=== PATIENT | female | born 1985 | race Caucasian/White ===

== ENCOUNTER 2025-07-02 10:24 | Emergency (ER) | payer BC, SELFPAY ==
--- OUTSIDE RECORDS SUMMARY | 2025-07-02 10:27 | XMS_ITS | Clinical Summary ---
Author Organization [facility] Address [address] [place] [id number] Care Team Providers Care Transit Planning Director Name Role Phone Ольга Beavers DO Primary Care Provider [phone] Allergies Active Allergy Reactions Criticality Noted Date Comments Hydrocodone-Acetaminophen Itching 03/30/2007 Medications hydrOXYzine HCL (ATARAX) 50 mg tablet Take 1 tablet by mouth 3 times daily if needed. 01/02/2020 Active escitalopram oxalate (LEXAPRO) 20 mg tabletIndication s:KATHY (generalized anxiety disorder),Chroni c post-traumatic stress disorder (PTSD),Mild episode of recurrent major depressive disorder Take 1 Tablet (20 mg) by mouth once daily in the morning. 90 Tablet 3 08/02/2024 Active busPIRone (BUSPAR) 10 mg tabletIndication s:KATHY (generalized anxiety disorder),Chroni c post-traumatic stress disorder (PTSD) Take 1 Tablet (10 mg) by mouth two times daily. 180 Tablet 05/22/2025 Active Active Problems Problem Noted Date Diagnosed Date KATHY (generalized anxiety disorder) 08/02/2024 Chronic post-traumatic stress disorder (PTSD) Mild episode of recurrent major depressive disor daisy 08/02/2024 Immunization reaction 08/02/2024 JOSÉ III (cervical intraepithelial neoplasia III) 06/03/2009 Overview (08/08/2024): 05/10/2009 HSIL 06/03/2009 [place]: JOSÉ 2-3 01/21/2010 HSIL 02/04/2010 [place]: JOSÉ 2-3 02/27/2010 LEEP JOSÉ 2-3, ectocervical margin positive 05/09/2014 NIL/HPV negative 02/19/2020 NIL/HPV negative 08/02/2024 NIL/HPV negative Plan: HPV-based testing due 07/2027 ASCCP suggests that follow-up should continue at 3 year intervals for a minimum of 25 years AND through at least age 65 years AND may continue for as long as the patient is in good health. CYST, SEBACEOUS 11/29/2000 Resolved Problems Problem Noted Date Diagnosed Date Resolved Date Nephrolithiasis 08/02/2024 08/02/2024 Acute appendicitis 04/09/2011 Adnexal Mass in 06/19/2009 Overview (01/06/2021): Diagnosed in Lap oophorectomy LEFT OVARY AND FALLOPIAN TUBE, SALPINGO-OOPHORECTOMY: 1. 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 Fallopian tube: No diagnostic alterations 3. No evidence of malignancy Supervision of normal first 05/20/2009 11/14/2012 Encounters Date Type Department Care Team Description 07/02/2025 Nurse Triage [facility] [address] [place] [address] Ольга Beavers, Back Pain 05/21/2025 Refill [facility] [address] [place] [address] Ольга Beavers, Refill Request (Buspirone HCL 10mg tabs) from Last 3 Months Immunizations Immunization Administration Dates Next Due Influenza A (H1N1), Inactivated (Age >=3 Years) 08/22/2009 Influenza, IIV3 (Age >=3 years) 09/19/2009,07/23 MMR 01/17/1998,02/20/1987 Td (Age >=7 Years) 04/26/2000,01/17/1998 Tdap 05/09/2014 Family History Medical History Relation Name Comments Arrhythmia Father Cancer Maternal Aunt 1 cervical can cer Cancer-breast Maternal Aunt 1 Lung cancer Maternal Aunt 1 Cancer-breast Maternal Aunt 2 COPD Maternal Grandfather Alzheimer's disease Maternal Grandmother Cancer Mother cervical, breas t (45) and ovarian (53) Heart attack Paternal Grandfather Good Health Sister Relation Name Status Comments Father Alive Maternal Aunt 1 Maternal Aunt 2 Alive Maternal Grandfather Maternal Grandmother Mother Alive Paternal Grandfather Paternal Grandmother Alive Sister Alive Social History Tobacco Use Types Packs/Day Years Used Date Smoking Tobacco: Every Day Cigarettes Smokeless Tobacco: Never Tobacco Cessation:Counseling Given: Yes Comments:has cut back to 2 to 5 per day Alcohol Use Standard Drinks/Week Comments Yes 6.7 (1 standard drink = 0.6 oz p ure alcohol) 2-4 per month PHQ-2 Answer Date Recorded PHQ-2 TOTAL SCORE 2 08/02/2024 Social Connections Answer Date Recorded Do you often feel lonely or isolated from those around you? 0 07/06/2024 Financial Resource Strain Answer Date R ecorded Difficulty of Paying Living Expenses 3 07/06/2024 Difficulty of Paying Living Expenses Not on file 07/06/2024 Food Insecurity Answer Date Recorded Do you worry your food will run out before you are able to buy more? 1 07/06/2024 Transportation Needs Answer Date Record ed Does lack of transportation keep you from medica l appointments? 1 07/06/2024 Does lack of transportation keep you from work, meetings or getting things that you need? 1 07/06/2024 Housing Stability Answer Date Recorded What is your housing situation today? 1 07/06/2024 Utilities Answer Date Recorded Do you have trouble paying f or utilities (for example, heat, electricity, water, phone)? 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 Not on file Not on file Not on file Obstetrics History Para Term AB IAB SAB Ectopic Multiple Livin g Live Births 1 1 1 1 1 Date Outcome GA Total Labor Labor/2nd/3rd Weight Sex Type Anes PTL Alpa A1 A5 Name Clin 2009 Term 38w 1d 36h 00m/ 3.06 kg (6 lb 12 oz) M Vag Epidur al Livin g [place] Delivery Location:[place] Last Filed Vital Signs Vital Sign Reading Time Taken Comments Blood Pressure 107/73 08/02/2024 7:45 AM CDT Pulse 89 08/02/2024 7:45 AM CDT Temperature 37.7 C (99.9 F) 12/27/2015 9:31 AM CDT Respiratory Rate 14 06/28/2009 7:00 AM CDT Oxygen Saturation 99% 07/17/2024 7:37 AM CDT Inhaled Oxygen Concentration - - Weight 113.3 kg (249 lb 12.8 oz) 08/02/2024 7:45 AM CDT Height 182 cm (5' 11.65) 08/02/2024 7 :45 AM CDT Body Mass Index 34.21 08/02/2024 7:45 AM CDT Plan of Treatment Health Maintenance Due Date Last Done Comments Hepatitis C screening for ag e 18-79 2003 Hepatitis B series for 19+ ( 1 of 3 - 19+ 3-dose series) 2004 Pneumococcal series for age 6-49 (1 of 2 - PCV) 2004 HPV series for age 9-45 (1 - 3-dose SCDM series) 2012 Tetanus booster 05/09/2024 05/09/2014, 04/04, 01/17/1998 COVID-19 vaccine series ( season) 2025 02/21/2021, 01/31/2021 Influenza Vaccine (#1) 2025 09/19/2009, 1994 BMI (ht and wt on same day) for age 18+ 08/02/2025 08/02/2024, 02/19/2020, 12/27/2015 Depression screening for age 12+ 08/02/2025 08/02/20 24, 02/19/2020 Pap test for age 21-65 08/02/2027 4, 02/19/2020, 02/19/2020, Additional history exists RSV vaccine for adults or (1 - 1-dose 75+ series) 2060 HIV for age 15-65 Completed 04/19/2009 Procedures Procedure Name Priority Date/Time Associated Diagnosis Comments FIELD SALES ENGINEER THIN PREP PAP AND HPV DNA - AGE 25 AND OVER ([facility]) Routine 08/02/2024 9:06 AM CDT Pap smear for cervical cancer screening ANTI HIV 1/2 Routine 04/19/2009 11:35 AM CDT Supervision of Other Normal (HC) from Last 3 Months or Most Recently Relevant to Health Maintenance Results * FIELD SALES ENGINEER THIN PREP PAP AND HPV DNA - AGE 25 AND OVER ([facility]) (08/02/2024 9:06 AM CDT) CLINICAL INFORMATION [facility] Comment:None given LMP [facility] Comment:07/16/24 PREV. PAP [facility] Comment:NIL HPV NEG IN 2019 PREV. BX [facility] Comment:N/A SOURCE FIELD SALES ENGINEER [facility] Comment:Cervix STATEMENT OF ADEQUACY [facility] Comment: Satisfactory for evaluation. Endocervical/transformation zone component absent. INTERPRETATION/RESU LT [facility] Comment: Cytology Results: Negative for intraepithelial lesion or malignancy. COMMENT [facility] Comment: This Pap test has been evaluated with computer assisted technology. WHITE SIDEWALL TIRE BUFFER [facility] Comment: JXL, CT(ASCP) CT Screening Location: [address] [address] THINPREP TIS PAP ALWAYS MESSAGE [facility] Comment: EXPLANATORY NOTE: The Pap is a screening test for cervical cancer. It is not a diagnostic test and is subject to false negative and false positive results. It is most reliable when a satisfactory sample, regularly obtained, is submitted with relevant clinical findings and history, and when the Pap result is evaluated along with historic and current clinical information. HPV HIGH RISK Not Detected NOT DETECTED [facility] Comment: Not Detected High Risk HPV types (16,18,31,33,35,39,45,51,52, 56,58,59,66,68) were not detected. Other HPV types which cause anogenital lesions may be present. The significance of the other types of HPV in malignant processes has not been established. Methodology: Real Time PCR Other (Other) 08/02/2024 9:0 6 AM CDT 08/03/2024 4:03 AM CDT Ольга Beavers DO PATHOLOGY/CYTOLOGY Final R esult [facility] [address] [place] [address], [facility] [address] [place] [address] * HIV (04/19/2009 11:35 AM CDT) ANTI HIV 1/2 Non-reacti ve [facility] Blood specimen (specimen) BLOOD SPECIMEN / Unknown 04/19/2009 11:35 AM CDT 04/19/2009 11:29 AM CDT Carmen Guillen FAMILY INDEPENDENCE CASE MANAGER SEND OUTS Final Result [facility] INTERNAL ZIP [address] [address] from Last 3 Months or Most Recently Relevant to Health Maintenance Insurance [facility] Advance Directives * Full Code (Latest Code Status on File) Date Activated Date Inactivated Comments 06/24/2009 5:10 PM 06/28/2009 1:30 PM Care Teams Transit Planning Director Relationship Specialty Start Date End Date Ольга Beavers [place] [address] [place] [address] [place] [address] PCP - General Family Practice 07/06/24
[2025-07-02 10:35] VITALS: BP 126/77; PULSE 95; RESP 16; TEMP 36.7; O2SAT 97; BMI 33.5
--- NOTE | 2025-07-02 10:53 | ED.GENADULT ---
HPI - General Adult General Chief complaint: Back Injury/Pain Stated complaint: Lower back pain, numbness Time Seen by Provider: 07/02/25 10:27 Source: patient Mode of arrival: ambulatory Limitations: no limitations History of Present Illness HPI narrative: 40-year-old female presenting today with back pain radiates down legs. Patient states that she had back pain about 3 months ago and that did slowly get better. At that time she did have pain radiating down the right leg and numbness going down the right leg. She states that she that numbness has not fully recovered since 3 months ago. However about 1 month ago she had a bad cough and felt a pop in her back and has been having shooting pain down both legs since. In the last 3 days she feels like the pain has gotten worse. She denies loss of bowel or bladder function. No fevers or chills. No nausea or vomiting. She denies the lower extremities not functioning properly, has not tripped or fallen. Sometime she states her legs do feel weak. She denies any saddle anesthesia. Pain radiates to the mid chacon on the right and to just above the knee on the left. Describes as a sharp shooting pain that is not always present but comes and goes. Pain across the low back is always present. Related Data Home Medications ?Medication ?Instructions ?Recorded ?Confirmed buspirone 10 mg tablet 10 mg PO BID 07/02/25 07/02/25 escitalopram oxalate 20 mg tablet 20 mg PO DAILY 07/02/25 07/02/25 Previous Rx's ?Medication ?Instructions ?Recorded ketorolac 10 mg tablet 10 mg PO TID 5 days #15 tabs 07/02/25 ketorolac 10 mg tablet 10 mg PO TID 5 days #15 tabs 07/02/25 methylprednisolone 4 mg tablets in See Rx Instructions PO .COMPLEX 07/02/25 a dose pack (Medrol ([facility])) #21 ea methylprednisolone 4 mg tablets in See Rx Instructions PO .COMPLEX 07/02/25 a dose pack (Medrol ([facility])) #21 ea Allergies Allergy/AdvReac Type Severity Reaction Status Date / Time acetaminophen (From Vicodin) AdvReac itching Verified 07/02/25 11:07 hydrocodone (From Vicodin) AdvReac itching Verified 07/02/25 11:07 Review of Systems Status of ROS: Reports: 10 or more systems reviewed and unremarkable except as noted in History and below [facility] Social History Smoking Status: Current every day smoker What tobacco products do you use: cigarettes Smoking packs per day: 0.5 Smoking cigarettes per day: 10.0 Do you use any of these nicotine containing products: None Second hand tobacco smoke exposure: No How often do you have a drink containing alcohol: 2-3 times a week AUDIT-C Alcohol total score: 3 Non-prescribed substance use: marijuana (any form) service: No Exam Narrative: Exam Narrative: Overweight, well-developed patient in no acute distress. Alert and oriented. Answers questions appropriately. Mood and affect are appropriate. Thoughts are goal oriented and rational. No tangential or magical thinking noted. Patient speaks in full sentences without needing to catch her breath. HEENT: Normocephalic atraumatic. Pupils are equally round reactive to light. Extraocular muscles are intact. Conjunctivae are moist without any icterus noted. Moist mucous membranes. Straight leg test is positive on the right. Back: Normal appearance. Tenderness around the paraspinal musculature of the lumbar spine. Strength is 5/5 of the upper and lower extremities, both proximal and distal muscle groups. Reflexes are 2+ and symmetric at the knees. Const: Vital Signs, click to edit/add: Vital Signs - 24 hr 07/02/25 10:35 Temperature 98.1 F Pulse Rate [Pulse Oximeter] 95 Respiratory Rate 16 Blood Pressure [Ri ght Upper Arm] 126/77 Pulse Oximetry 97 Oxygen Delivery Me thod Room Air Course Vital Signs Vital signs: Initial Vital Signs Temperature 98.1 F 07/02/25 10:35 Temperature Source Temporal Artery Scan 07/02/25 10:35 Pulse Rate 95 07/02/25 10:35 Pulse Rhythm Regular 07/02/25 10:35 Pulse Strength 3+ Normal 07/02/25 10:35 Respiratory Rate 16 07/02/25 10:35 Blood Pressure 126/77 07/02/25 10:35 Blood Pressure Mean 93 07/02/25 10:35 Blood Pressure Position Sitting 07/02/25 10:35 Pulse Oximetry 97 07/02/25 10:35 Oxygen Delivery Method Room Air 07/02/25 10:35 Vital Signs Temperature 98.1 F 07/02/25 10:35 Pulse Rate 95 07/02/25 10:35 Respiratory Rate 16 07/02/25 10:35 Blood Pressure 126/77 07/02/25 10:35 Pulse Oximetry 97 07/02/25 10:35 Oxygen Delivery Method Room Air 07/02/25 10:35 Temperature 98.1 F 07/02/25 10:35 Pulse Rate 95 07/02/25 10:35 Respiratory Rate 16 07/02/25 10:35 Blood Pressure 126/77 07/02/25 10:35 Pulse Oximetry 97 07/02/25 10:35 Oxygen Delivery Method Room Air 07/02/25 10:35 Medical Decision Making MDM Narrative Medical decision making narrative: 40-year-old female with lumbar back pain with radiculopathy. Potential herniated disc. Will treat with Medrol Dosepak and Toradol p.o.- follow-up in the spine clinic. Discharge Plan Discharge Clinical Impression: Lumbar radiculopathy Patient Disposition: Home, Self-Care Condition: Stable Additional Instructions: Follow up appointment is scheduled at the [facility] on 07/23 with an 8:30am appointment time. Please arrive at 8:15am to complete paperwork. If you have any questions or need to reschedule, please call [phone]. [facility] [address] [place] [address] Prescriptions: New ketorolac 10 mg tablet 10 mg PO TID 5 Days Qty: 15 0RF methylprednisolone [Medrol ([facility])] 4 mg tablets,dose pack See Rx Instructions .ROUTE .COMPLEX Qty: 21 0RF Rx Instructions: orally per package directions ketorolac 10 mg tablet 10 mg PO TID 5 Days Qty: 15 0RF methylprednisolone [Medrol ([facility])] 4 mg tablets,dose pack See Rx Instructions .ROUTE .COMPLEX Qty: 21 0RF Rx Instructions: orally per package directions No Action buspirone 10 mg tablet 10 mg PO BID escitalopram oxalate 20 mg tablet 20 mg PO DAILY Follow Up/Referrals: Fariba Molina MD [Primary Care Provider, Family Practice] Stand Alone Forms: [facility] Info Instructions
== END 2025-07-02 11:17 | disposition home or self-care (01) ==
LOC: ED 11:03
PROVIDERS: Emergency Provider Family Medicine; PCP Family Medicine
DX: M54.16 Radiculopathy, lumbar region (principal)
CPT/HCPCS: 99283; 99284

== ENCOUNTER 2025-08-21 13:38 | Emergency (ER) | payer BC, SELFPAY ==
--- NOTE | 2025-08-21 | CRLHL7_ITS ---
For Patients: As a result of the Century Cures Act, medical imaging exams and procedure reports are released immediately into your electronic medical record. You may view this report before your referring provider. If you have questions, please contact your health care provider. FINDINGS: Please see report from concurrent MRI of the brain. Dictated by Vamshi Ray MD @ 08/21/2025 5:38:46 PM (Electronically Signed)
[2025-08-21 14:13] VITALS: BP 140/89; PULSE 68; RESP 18; TEMP 36.7; O2SAT 98; BMI 33.0
--- NOTE | 2025-08-21 15:21 | CRLHL7_ITS ---
For Patients: As a result of the Century Cures Act, medical imaging exams and procedure reports are released immediately into your electronic medical record. You may view this report before your referring provider. If you have questions, please contact your health care provider. INDICATION: Vision issues left eye. COMPARISON: None available. TECHNIQUE: Multiplanar T1, T2, FLAIR and diffusion-weighted imaging. Post gadolinium T1 sequences. Additional pre and post gadolinium sequences of the orbits with fat saturation. Gadolinium 15 cc IV FINDINGS: Normal brain parenchymal morphology and signal intensity. No intracranial hemorrhage. No abnormal ventricular dilatation. Intracranial vascular flow voids are preserved. No mass effect. No midline shift. No restricted diffusion to suggest acute ischemia. No abnormal enhancement or enhancing lesions. Dedicated sequences of the orbits demonstrates normal symmetric globes. No proptosis. No abnormal signal intensity or enhancement of the optic nerve sheath complexes. Normal symmetric extra-ocular muscles. No intraconal extraconal mass or lesion. Normal appearing sella. Normal cavernous sinuses bilaterally. Visualized paranasal sinuses unremarkable. Small left mastoid effusion. IMPRESSION: 1. No acute intracranial abnormality 2. Normal brain parenchymal morphology and signal intensity. 3. No abnormal enhancement or enhancing lesions within the brain parenchyma 4. Dedicated sequences of the orbits demonstrates normal symmetric globes, extra-ocular muscles and optic nerve sheath complexes. No intraconal or extraconal mass or lesion. Dictated by Vamshi Ray MD @ 08/21/2025 5:38:22 PM (Electronically Signed)
--- NOTE | 2025-08-21 17:08 | ED.NEUROSD ---
HPI - Neuro Symptoms/Deficit General Date Seen: 08/21/25 Chief Complaint: Neuro Symptoms/Altered Deficit Stated Complaint: Vision issues Time Seen by Provider: 08/21/25 14:43 Source: patient Mode of arrival: ambulatory Limitations: no limitations History of Present Illness HPI Narrative: Patient is a 40-year-old female presenting to the emergency department for vision issues. She states 2 weeks ago she noticed the redness in the middle 3rd of her left visual field. No visual issues with her right eye. She has never had symptoms like this before. She states the top 3rd aches and bottom 3rd of her left eye vision appears normal. She saw her coil connector and PCP for both said her eye looks normal. She does have some history of slight glaucoma but she states her coil connector states it is at baseline it is not causing the symptoms. She states she set up an appointment with [place] [facility] any done and was going to be having appointment in 2 weeks but she states they then called her back and told her to get to the emergency department to do an MRI and see them on Wednesday. Related Data Home Medications ?Medication ?Instructions ?Recorded ?Confirmed buspirone 10 mg tablet 10 mg PO BID 07/02/25 07/23/25 escitalopram oxalate 20 mg tablet 20 mg PO DAILY 07/02/25 07/23/25 hydroxyzine HCl 10 mg tablet 10 mg PO 3XD 07/23/25 07/23/25 Previous Rx's ?Medication ?Instructions ?Recorded ketorolac 10 mg tablet 10 mg PO TID 5 days #15 tabs 07/02/25 ketorolac 10 mg tablet 10 mg PO TID 5 days #15 tabs 07/02/25 methylprednisolone 4 mg tablets in See Rx Instructions PO .COMPLEX 07/02/25 a dose pack (Medrol (Harvey)) #21 ea methylprednisolone 4 mg tablets in See Rx Instructions PO .COMPLEX 07/02/25 a dose pack (Medrol (Harvey)) #21 ea Allergies Allergy/AdvReac Type Severity Reaction Status Date / Time acetaminophen (From Vicodin) AdvReac itching Verified 07/23/25 08:37 hydrocodone (From Vicodin) AdvReac itching Verified 07/23/25 08:37 Review of Systems Status of ROS: Reports: 10 or more systems reviewed and unremarkable except as noted in History and below [facility] Medical History KATHY (generalized anxiety disorder) ?F41.1 - Generalized anxiety disorder (ICD-10) Scoliosis ?M41.9 - Scoliosis, unspecified (ICD-10) PTSD (post-traumatic stress disorder) ?F43.10 - Post-traumatic stress disorder, unspecified (ICD-10) Ovarian mass, left ?N83.8 - Other noninflammatory disorders of ovary, fallopian tube and broad ligament (ICD-10) Depression ?F32.A - Depression, unspecified (ICD-10) Nephrolithiasis ?N20.0 - Calculus of kidney (ICD-10) Surgical History History of colposcopy (06/03/09) ?Z98.890 - Other specified postprocedural states (ICD-10) H/O unilateral oophorectomy (06/24/09) ?Z90.721 - Acquired absence of ovaries, unilateral (ICD-10) H/O LEEP (02/27/10) ?Z98.890 - Other specified postprocedural states (ICD-10) History of appendectomy (04/08/11) ?Z90.49 - Acquired absence of other specified parts of digestive tract (ICD-10) Social History Smoking Status: Current every day smoker What tobacco products do you use: cigarettes Smoking packs per day: 0.5 Smoking cigarettes per day: 10.0 Do you use any of these nicotine containing products: None Second hand tobacco smoke exposure: No How often do you have a drink containing alcohol: 2-3 times a week AUDIT-C Alcohol total score: 3 Non-prescribed substance use: marijuana (any form) service: No Exam Narrative: Exam Narrative: Const: Well-nourished, Well-developed, in no distress Eyes: PERRL, no conjunctival injection, and symmetrical lids. Bedside visual exam she was able to see my fingers when standing for away but she states she was using lot of contacts bruise to cast the number. When I wrote a number large CN a piece of paper and stayed the same distance away she was unable to see the number. HENT: Atraumatic external nose and ears. Moist mucous membranes. Neck: Symmetric, trachea midline, No thyromegaly. CVS: RRR, No murmurs or gallops. Peripheral pulses 2+ and equal in all extremities RESP: Unlabored respiratory effort. Clear to auscultation bilaterally. GI: Nontender/Nondistended, No rebound or guarding. MSK:Extremities w/o deformity, Normal Active ROM Skin: Warm, Dry. No rashes or lesions. Neuro: Normal Muscle tone, No focal neurological deficits. Psych: Awake, Alert, & Oriented x3. Appropriate mood and affect. Const: Vital Signs, click to edit/add: Vital Signs - 24 hr 08/21/25 14:13 Temperature 98.0 F Pulse Rate [Right Pulse Oximeter] 68 Respiratory Rate 18 Blood Pressure [Ri ght Upper Arm] 140/89 H Pulse Oximetry 98 Oxygen Delivery Me thod Room Air Course Vital Signs Vital signs: Initial Vital Signs Temperature 98.0 F 08/21/25 14:13 Temperature Source Temporal Artery Scan 08/21/25 14:13 Pulse Rate 68 08/21/25 14:13 Respiratory Rate 18 08/21/25 14:13 Blood Pressure 140/89 H 08/21/25 14:13 Blood Pressure Mean 106 H 08/21/25 14:13 Blood Pressure Position Sitting 08/21/25 14:13 Pulse Oximetry 98 08/21/25 14:13 Oxygen Delivery Method Room Air 08/21/25 14:13 Vital Signs Temperature 98.0 F 08/21/25 14:13 Pulse Rate 68 08/21/25 14:13 Respiratory Rate 18 08/21/25 14:13 Blood Pressure 140/89 H 08/21/25 14:13 Pulse Oximetry 98 08/21/25 14:13 Oxygen Delivery Method Room Air 08/21/25 14:13 Temperature 98.0 F 08/21/25 14:13 Pulse Rate 68 08/21/25 14:13 Respiratory Rate 18 08/21/25 14:13 Blood Pressure 140/89 H 08/21/25 14:13 Pulse Oximetry 98 08/21/25 14:13 Oxygen Delivery Method Room Air 08/21/25 14:13 MDM - Neuro Symptoms/Deficit MDM Narrative Medical decision making narrative: Patient is a 40-year-old female presenting for visual changes. This has been going on for 2 weeks. She is told to come here to get MRI imaging. I spoke to the provider at the [facility], were she said her appointment is, for [facility] and she states she is unaware the patient but she is assuming that the imaging they would want would be a brain and orbits with and without contrast. This was ordered. MIs with done returned showing no acute concerning abnormalities. She was provided the discs. She will be discharged. She is agreeable to this plan. Imaging Data MR brain and orbits: Attestation: I have reviewed the pertinent imaging results. Radiologist's impression: 1. No acute intracranial abnormality 2. Normal brain parenchymal morphology and signal intensity. 3. No abnormal enhancement or enhancing lesions within the brain parenchyma 4. Dedicated sequences of the orbits demonstrates normal symmetric globes, extra-ocular muscles and optic nerve sheath complexes. No intraconal or extraconal mass or lesion. Dictated by Vamshi Ray MD @ 08/21/2025 5:38:22 PM Discharge Plan Discharge Clinical Impression: Alteration in vision Patient Disposition: Home, Self-Care Condition: Stable Additional Instructions: Follow-up with your neurologist. Make sure to bring the disc with the images to your appointment on Wednesday. Return to emergency department for new or worsening symptoms Prescriptions: No Action hydroxyzine HCl 10 mg tablet 10 mg PO 3XD ketorolac 10 mg tablet 10 mg PO TID 5 Days Qty: 15 0RF methylprednisolone [Medrol (Harvey)] 4 mg tablets,dose pack See Rx Instructions .ROUTE .COMPLEX Qty: 21 0RF Rx Instructions: orally per package directions buspirone 10 mg tablet 10 mg PO BID escitalopram oxalate 20 mg tablet 20 mg PO DAILY ketorolac 10 mg tablet 10 mg PO TID 5 Days Qty: 15 0RF methylprednisolone [Medrol ([place])] 4 mg tablets,dose pack See Rx Instructions .ROUTE .COMPLEX Qty: 21 0RF Rx Instructions: orally per package directions Follow Up/Referrals: Bettina Genao PA-C [Primary Care Provider, Family Practice] Stand Alone Forms: [employer] Info Instructions
== END 2025-08-21 18:07 | disposition home or self-care (01) ==
PROVIDERS: Emergency Provider Student in an Organized Health Care Education/Training Program; PCP Physician Assistant
DX: H53.9 Unspecified visual disturbance (principal)
CPT/HCPCS: 70543; 70553; 99283; 99284; 99285; A9575

== ENCOUNTER 2025-09-17 11:29 | Emergency (ER) | payer BC, SELFPAY ==
[2025-09-17] VITALS (9 sets, daily range): BP systolic 128–137; BP diastolic 77–89; PULSE 101; RESP 14–21; TEMP 36.2; O2SAT 98; BMI 32.9
--- NOTE | 2025-09-17 11:50 | ED.CHESTPAIN ---
HPI - Chest Pain General Date Seen: 09/17/25 Chief Complaint: Chest Pain Stated Complaint: Chest pain PCP wanted xrays Time Seen by Provider: 09/17/25 11:50 History of Present Illness HPI narrative: Patient is a very pleasant 40-year-old female recently diagnosed with MS and recently hospitalized for treatment for optic neuritis with high-dose steroids who comes to the emergency room with 8 days of left upper abdominal and left flank pain. Patient notes that she was hospitalized at [facility] and was on high doses of steroids. When she finished those steroids she had the onset of left upper quadrant pain with radiation around to her flank 8 days ago. She does note that when she moves it seems to hurt more. Taking a deep breath or coughing definitely increases her discomfort. She has not had fever chills. She denies any dysuria hematuria. She has not had any trauma. No diarrhea or constipation. Pain is significant enough that her clinic told her to come to the emergency. Denies any possibility of . Related Data Home Medications ?Medication ?Instructions ?Recorded ?Confirmed buspirone 10 mg tablet 15 mg PO BID 07/02/25 09/17/25 escitalopram oxalate 20 mg tablet 20 mg PO DAILY 07/02/25 09/17/25 hydroxyzine HCl 10 mg tablet 25 mg PO 3XD 07/23/25 09/17/25 Allergies Allergy/AdvReac Type Severity Reaction Status Date / Time acetaminophen (From Vicodin) AdvReac itching Verified 09/17/25 11:44 hydrocodone (From Vicodin) AdvReac itching Verified 09/17/25 11:44 Review of Systems Status of ROS Reports: 10 or more systems reviewed and unremarkable except as noted in History and below Const Denies: fever or chills ENMT Denies: throat pain, neck pain or nasal congestion Cardio Reports: chest pain; Denies: palpitations, edema, swelling of feet/ankles or lightheadedness Resp Reports: pain on inspiration GI Reports: abdominal pain; Denies: nausea, vomiting, diarrhea, constipation or blood in stool Denies: painful urination or urinary frequency Musculo Reports: back pain; Denies: neck pain or extremity pain Integ/Breast Denies: rash Neuro Denies: headache PFSH PFSH Medical History KATHY (generalized anxiety disorder) ?F41.1 - Generalized anxiety disorder (ICD-10) Scoliosis ?M41.9 - Scoliosis, unspecified (ICD-10) PTSD (post-traumatic stress disorder) ?F43.10 - Post-traumatic stress disorder, unspecified (ICD-10) Ovarian mass, left ?N83.8 - Other noninflammatory disorders of ovary, fallopian tube and broad ligament (ICD-10) Depression ?F32.A - Depression, unspecified (ICD-10) Nephrolithiasis ?N20.0 - Calculus of kidney (ICD-10) Surgical History History of colposcopy (06/03/09) ?Z98.890 - Other specified postprocedural states (ICD-10) H/O unilateral oophorectomy (06/24/09) ?Z90.721 - Acquired absence of ovaries, unilateral (ICD-10) H/O LEEP (02/27/10) ?Z98.890 - Other specified postprocedural states (ICD-10) History of appendectomy (04/08/11) ?Z90.49 - Acquired absence of other specified parts of digestive tract (ICD-10) Social History Smoking Status: Current every day smoker What tobacco products do you use: cigarettes Smoking packs per day: 0.5 Smoking cigarettes per day: 10.0 Do you use any of these nicotine containing products: None Second hand tobacco smoke exposure: No How often do you have a drink containing alcohol: 2-3 times a week AUDIT-C Alcohol total score: 3 Non-prescribed substance use: marijuana (any form) service: No Exam Narrative Exam Narrative: Patient is alert and oriented. No acute distress. Clearly uncomfortable with any movement. External ears eyes nose clear. Neck is supple without lymphadenopathy. Heart with a tachycardic rate but normal rhythm. Lungs are clear but difficulty with deep inspiration and thus lung bases are inadequately evaluated. Abdomen is soft. She does have some tenderness noted left upper quadrant. Mild CVA tenderness on the left. Moving all extremities. No lower extremity edema or calf pain. No evidence of a rash lesions noted on back or upper abdomen. Const Vital Signs, click to edit/add: Vital Signs - 24 hr 09/17/25 11:31 09/17/25 12:42 09/17/25 12:45 Temperature 97.2 F L Pulse Rate [Pulse Oximeter] 101 H Respiratory Rate 16 21 19 Blood Pressure Blood Pressure [Right Upper Arm] 137/77 Pulse Oximetry 98 Oxygen Delivery Method Room Air 09/17/25 12:58 09/17/25 12:59 09/17/25 13:00 Temperature Pulse Rate [Pulse Oximeter] Respiratory Rate 14 20 18 Blood Pressure 128/89 Blood Pressure [Right Upper Arm] Pulse Oximetry Oxygen Delivery Method 09/17/25 13:15 09/17/25 13:30 09/17/25 13:45 Temperature Pulse Rate [Pulse Oximeter] Respiratory Rate 18 18 18 Blood Pressure Blood Pressure [Right Upper Arm] Pulse Oximetry Oxygen Delivery Method Documenting provider has reviewed patient's vital signs: yes Course Course ED Course: Differential diagnosis includes but is not limited to pleurisy, PE, musculoskeletal/costochondritis, pyelonephritis colitis, diverticulitis. Will place IV draw labs to include CBC, comprehensive, lactate, lipase, CRP. Will also obtain CT PE study of the chest and contrast study of the abdomen and pelvis. Vital Signs Vital signs: Initial Vital Signs Temperature 97.2 F L 09/17/25 11:31 Temperature Source Temporal Artery Scan 09/17/25 11:31 Pulse Rate 101 H 09/17/25 11:31 Respiratory Rate 16 09/17/25 11:31 Blood Pressure 137/77 09/17/25 11:31 Blood Pressure Mean 97 09/17/25 11:31 Blood Pressure Position Sitting 09/17/25 11:31 Pulse Oximetry 98 09/17/25 11:31 Oxygen Delivery Method Room Air 09/17/25 11:31 Vital Signs Temperature 97.2 F L 09/17/25 11:31 Pulse Rate 101 H 09/17/25 11:31 Respiratory Rate 16 09/17/25 11:31 Blood Pressure 137/77 09/17/25 11:31 Pulse Oximetry 98 09/17/25 11:31 Oxygen Delivery Method Room Air 09/17/25 11:31 Temperature 97.2 F L 09/17/25 11:31 Pulse Rate 101 H 09/17/25 11:31 Respiratory Rate 18 09/17/25 13:45 Blood Pressure 128/89 09/17/25 12:58 Pulse Oximetry 98 09/17/25 11:31 Oxygen Delivery Method Room Air 09/17/25 11:31 MDM - Chest Pain MDM Narrative Medical decision making narrative: 1. Abdominal pain- likely musculoskeletal. Pain does extend onto lower ribcage in over flank. Patient did have some hematuria but no evidence of stones or obstruction on CT. Both PE study of the chest in abdominal CT without any abnormalities. Patient will relate this to her primary. Their primary was thinking about starting her on gabapentin. 2. Hematuria-will send urine for culture. If negative patient will want to follow up to ensure complete resolution of the hematuria. 3. MS-recently diagnosed and currently finished with high-dose steroids. CRP is normal. White count normal at 9.15 and hemoglobin is 12.5. 4. Lipase CRP LFTs all within normal limits. 5. Disposition-home at this time. Will make copies of both her CT PE study of the chest and abdominal CT for patient to take to her primary. No evidence of shingles or other abnormality to explain pain today. Patient is instructed to return/seek medical attention for worsening symptoms especially with fever chills vomiting and as needed. Medical Records Data Attestation: I reviewed the patient's medical records. Lab Data Attestation: I reviewed the patient's lab results. Labs: Lab Results 09/17/25 09/17/25 Range/Units 12:20 12:50 WBC 9.15 (4.50-11.00) K/uL RBC 4.51 (4.00-5.20) m/uL Hgb 12.5 (12.0-16.0) gm/dL Hct 40.3 (33.0-51.0) % MCV 89 (80-100) fL MCH 28 (26-34) pg MCHC 31 L (32-36) gm/dL RDW Coeff of Mili 15.0 (11.5-15.5) % Plt Count 225 (140-440) K/uL Neut % (Auto) 67.2 (42.0-72.0) % Lymph % (Auto) 26.0 (20-44) % [place] % (Auto) 5.6 (0.0-11.0) % Eos % (Auto) 0.8 (0.0-7.0) % Baso % (Auto) 0.2 (0.0-3.0) % Neut # (Auto) 6.15 (1.7-7.0) K/uL Lymph # (Auto) 2.38 (0.90-2.90) K/uL [place] # (Auto) 0.50 (0.00-0.90) K/UL Eos # (Auto) 0.07 (0.00-0.50) K/uL Baso # (Auto) 0.02 (0.00-0.30) K/uL Abs Immat Gran (auto) 0.02 (0.00-0.30) K/uL Imm/Tot Granulo (auto) 0.2 % Sodium 134 L (135-149) mmol/L Potassium 4.3 (3.6-5.1) mmol/L Chloride 104 (96-114) mmol/L Carbon Dioxide 24 (20-32) mmol/L Anion Gap 6 L (7-15) mEq/L BUN 14 (5-24) mg/dL Creatinine 0.7 (0.5-1.5) mg/dL Estimated Creat Clear 119.40 Estimated GFR 112 ml/min Glucose 110 (60-115) mg/dL Lactate 1.4 (0.5-1.9) mmol/L Calcium 9.3 (8.4-10.6) mg/dL Total Bilirubin 0.5 (0.1-1.5) mg/dL AST 22 (12-35) U/L ALT 25 (4-35) U/L Alkaline Phosphatase 67 (40-150) U/L C-Reactive Protein < 0.5 L (0.5-1.0) mg/dL Total Protein 7.1 (6.0-8.3) g/dL Albumin 4.2 (3.3-5.0) g/dL Lipase 61 (23-300) U/L Urine Color Yellow (Yellow) Urine Appearance Clear (Clear) Urine pH 7.0 (5.0-8.5) Ur Specific [place] 1.015 (1.000-1.030) Urine Protein Negative (Negative) Urine Glucose (UA) Negative (Negative) Urine Ketones Negative (Negative) Urine Blood 1+ A (Negative) Urine Nitrite Negative (Negative) Urine Bilirubin Negative (Negative) Urine Urobilinogen 0.2 (0.2-1.0) Ur Leukocyte Esterase Negative (Negative) Urine RBC 5-10 A (0-2) Urine WBC 0-2 (0-5) Ur Squamous Epith Cells Few (None-Few) Urine Bacteria Many A (None) Imaging Data CT Chest/Ab/Pelvis: Attestation: I have reviewed the pertinent imaging results. My impression: I do not note any acute intra-abdominal abnormalities. No large PE noted Radiologist's impression: E: Well-timed contrast bolus. No pulmonary emboli. Normal caliber main pulmonary artery. Normal sized right heart chambers. No reflux of contrast below the diaphragm. Airway: Normal tracheobronchial tree. Lungs: No nodules or masses. No consolidations. Normal appearance of the pulmonary interstitium. Pleura: No pleural effusion. No pneumothorax. Lymph nodes: No thoracic adenopathy. Mediastinum: No pneumomediastinum. No mass. Heart and great vessels: No pericardial effusion. Normal cardiac chamber size. No calcified atherosclerotic plaques. No aortic aneurysm. Chest wall: Normal. No masses. Upper abdomen: Normal. Bones: No fractures. No focal bone lesions. IMPRESSION: Normal exam. No pulmonary embolus. Lower thorax: Please see separately dictated same day report. Liver and biliary tree: Subcentimeter hypoattenuating lesions are too small to characterize and are favored to represent cysts. Gallbladder: Normal. Spleen: Normal. Pancreas: Normal. Adrenal glands: Normal. Kidneys and ureters: No hydronephrosis or obstructing renal calculi. Gastrointestinal tract: Scattered colonic diverticulosis without CT evidence of acute diverticulitis. No evidence of acute appendicitis. No evidence of bowel obstruction. Peritoneal cavity: Normal. Bladder: Normal. Pelvic organs: Normal. Vasculature: Normal. Lymph nodes: Normal. Abdominal wall: Normal. Musculoskeletal: Normal. IMPRESSION: No acute intra-abdominal abnormality is seen. Discharge Plan Discharge Clinical Impression: Abdominal pain Qualifiers: Abdominal location: left upper quadrant Qualified Code(s): R10.12 - Left upper quadrant pain Hematuria Qualifiers: Hematuria type: asymptomatic microscopic Qualified Code(s): R31.21 - Asymptomatic microscopic hematuria Patient Disposition: Home, Self-Care Condition: Improved Additional Instructions: Follow up with your primary md for recheck. OF note, you had a small amount of blood in your urine. I will send it for a culture in case this represents a uti and we will call you if the culture is positive. If there is no UTI, you will need to recheck with your primary to ensure resolution of the blood. Return to the ER for worsening symptoms and as needed Prescriptions: No Action hydroxyzine HCl 10 mg tablet 25 mg PO 3XD buspirone 10 mg tablet 15 mg PO BID escitalopram oxalate 20 mg tablet 20 mg PO DAILY Follow Up/Referrals: Sarah Moncada M.D. [Primary Care Provider, Family Practice] Stand Alone Forms: [employer] Info Instructions
--- NOTE | 2025-09-17 11:58 | CRLHL7_ITS ---
For Patients: As a result of the Century Cures Act, medical imaging exams and procedure reports are released immediately into your electronic medical record. You may view this report before your referring provider. If you have questions, please contact your health care provider. INDICATION: Chest pain, left upper abdominal pain, lower chest pain, recent diagnosis of multiple sclerosis. COMPARISON: Correlated with same day CT abdomen pelvis. TECHNIQUE: CT angiogram chest with contrast, pulmonary embolism protocol. Multiplanar axial, coronal, and sagittal reformats are included. MIP images to improve detection of pulmonary emboli are included. Intravenous contrast: 95 mL Isovue 370. FINDINGS: PE: Well-timed contrast bolus. No pulmonary emboli. Normal caliber main pulmonary artery. Normal sized right heart chambers. No reflux of contrast below the diaphragm. Airway: Normal tracheobronchial tree. Lungs: No nodules or masses. No consolidations. Normal appearance of the pulmonary interstitium. Pleura: No pleural effusion. No pneumothorax. Lymph nodes: No thoracic adenopathy. Mediastinum: No pneumomediastinum. No mass. Heart and great vessels: No pericardial effusion. Normal cardiac chamber size. No calcified atherosclerotic plaques. No aortic aneurysm. Chest wall: Normal. No masses. Upper abdomen: Normal. Bones: No fractures. No focal bone lesions. IMPRESSION: Normal exam. No pulmonary embolus. Please note that all CT scans at this facility use dose modulation, iterative reconstruction, and/or weight-based dosing when appropriate to reduce radiation dose to as low as reasonably achievable. Dictated by Trisha Nair MD @ 09/17/2025 1:19:02 PM (Electronically Signed)
--- NOTE | 2025-09-17 11:58 | CRLHL7_ITS ---
For Patients: As a result of the Century Cures Act, medical imaging exams and procedure reports are released immediately into your electronic medical record. You may view this report before your referring provider. If you have questions, please contact your health care provider. INDICATION: CHEST PAIN RECENT DIAGNOISIS OF MS LEFT LOWER ABDOMEN PAIN Left upper abdominal and flank pain TECHNIQUE: CT of the abdomen and pelvis was obtained with 95 mL of Isovue 370 intravenous contrast. Please note that all CT scans at this facility use dose modulation, iterative reconstruction, and/or weight-based dosing when appropriate to reduce radiation dose to as low as reasonably achievable. COMPARISON: 07/06/2024. FINDINGS: Lower thorax: Please see separately dictated same day report. Liver and biliary tree: Subcentimeter hypoattenuating lesions are too small to characterize and are favored to represent cysts. Gallbladder: Normal. Spleen: Normal. Pancreas: Normal. Adrenal glands: Normal. Kidneys and ureters: No hydronephrosis or obstructing renal calculi. Gastrointestinal tract: Scattered colonic diverticulosis without CT evidence of acute diverticulitis. No evidence of acute appendicitis. No evidence of bowel obstruction. Peritoneal cavity: Normal. Bladder: Normal. Pelvic organs: Normal. Vasculature: Normal. Lymph nodes: Normal. Abdominal wall: Normal. Musculoskeletal: Normal. IMPRESSION: No acute intra-abdominal abnormality is seen. Please note that all CT scans at this facility use dose modulation, iterative reconstruction, and/or weight-based dosing when appropriate to reduce radiation dose to as low as reasonably achievable. Dictated by Bryon Murillo MD @ 09/17/2025 1:32:44 PM (Electronically Signed)
[2025-09-17 12:27] LABS: Lactate* 1.4 mmol/L (0.5-1.9)
[2025-09-17 12:33] LABS: Hematocrit* 40.3 % (33.0-51.0); Hemoglobin* 12.5 gm/dL (12.0-16.0); Immature Granulocytes Abs Auto 0.02 K/uL (0.00-0.30); Immature Granulocytes Pct Auto 0.2 %; Lymphocytes Absolute Auto 2.38 K/uL (0.90-2.90); Mean Corpuscular HGB Conc 31 gm/dL (32-36); Mean Corpuscular Hemoglobin 28 pg (26-34); Mean Corpuscular Volume 89 fL (80-100); RDW Coefficient of Variation % 15.0 % (11.5-15.5); Red Blood Count* 4.51 m/uL (4.00-5.20); White Blood Count* 9.15 K/uL (4.50-11.00)
[2025-09-17 12:34] LABS: Slide Review Reflex No
[2025-09-17 12:49] LABS: Albumin* 4.2 g/dL (3.3-5.0); Chloride* 104 mmol/L (96-114)
[2025-09-17 12:50] LABS: Potassium* 4.3 mmol/L (3.6-5.1); Sodium* 134 mmol/L (135-149)
[2025-09-17 12:52] LABS: Blood Urea Nitrogen* 14 mg/dL (5-24); Creatinine* 0.7 mg/dL (0.5-1.5); Est. Creatinine Clearance* 119.40; Estimated Glomerular Filt Rate 112 ml/min
[2025-09-17 12:53] LABS: Alanine Aminotransferase* 25 U/L (4-35); Alkaline Phosphatase* 67 U/L (40-150); Anion Gap 6 mEq/L (7-15); Aspartate Amino Transferase* 22 U/L (12-35); Bilirubin Total* 0.5 mg/dL (0.1-1.5); Calcium* 9.3 mg/dL (8.4-10.6); Carbon Dioxide* 24 mmol/L (20-32); Glucose* 110 mg/dL (60-115); Total Protein* 7.1 g/dL (6.0-8.3)
[2025-09-17 13:04] LABS: Appearance Urine Clear (Clear)
== END 2025-09-17 14:16 | disposition home or self-care (01) ==
PROVIDERS: Emergency Provider Family Medicine; PCP Student in an Organized Health Care Education/Training Program
DX: R10.12 Left upper quadrant pain (principal); R31.9 Hematuria, unspecified; G35.D Multiple sclerosis, unspecified; Z79.52 Long term (current) use of systemic steroids
CPT/HCPCS: 36415; 71275; 74177; 80053; 81001; 83605; 83690; 85025; 86140; 87086; 99284; 99285; Q9967